=== PATIENT | female | born 1935 | race Two or more races ===

== ENCOUNTER 2017-03-29 15:36 | Emergency (ER) | payer MEDICARE, OTHER ==
[~2017-03-29] VITALS: Ht 165.1 cm; Wt 66.5 kg
[2017-03-29 18:01] VITALS: BP 151/83
== END 2017-03-29 18:01 | disposition home or self-care (01) ==
LOC: ED 15:36
DX: S09.90XA Unspecified injury of head, initial encounter (principal); I10 Essential (primary) hypertension; X58.XXXA Exposure to other specified factors, initial encounter; Y93.89 Activity, other specified; Y99.8 Other external cause status; Y92.89 Other specified places as the place of occurrence of the external cause
CPT/HCPCS: 90715

== ENCOUNTER 2018-06-09 07:23 | Day surgery (SDC) | payer OTHER ==
[~2018-06-09] VITALS: Ht 152.4 cm; Wt 66.7 kg
[2018-06-09 07:55] VITALS: BP 138/79
[2018-06-09 11:38] VITALS: BP 123/66
== END 2018-06-09 10:55 | disposition home or self-care (01) ==
LOC: GI 07:23 → OR 09:00 → GI 09:00
PROVIDERS: Internal Medicine Gastroenterology
PROC: 0D758ZZ Dilation of Esophagus, Via Natural or Artificial Opening Endoscopic (ICD-10-PCS; principal; 2018-06-09 09:00)
PROC: 0DB58ZZ Excision of Esophagus, Via Natural or Artificial Opening Endoscopic (ICD-10-PCS; 2018-06-09 09:00)
PROC: 0DB68ZX Excision of Stomach, Via Natural or Artificial Opening Endoscopic, Diagnostic (ICD-10-PCS; 2018-06-09 09:00)
DX: K21.0 Gastro-esophageal reflux disease with esophagitis (principal); K22.4 Dyskinesia of esophagus; K22.10 Ulcer of esophagus without bleeding; K22.2 Esophageal obstruction; K44.9 Diaphragmatic hernia without obstruction or gangrene; I10 Essential (primary) hypertension
CPT/HCPCS: 43235; G0500; J1610; J2250; J2310; J3010; J3490